=== PATIENT | female | born 2005 | race Caucasian/White ===

== ENCOUNTER 2024-06-09 21:48 | Emergency (ER) | payer OTHER ==
[2024-06-09 22:42] LABS: Influenza A Detected (Not Detectd); Influenza B Not Detected (Not Detectd); RSV Not Detected (Not Detectd)
--- NOTE | 2024-06-09 23:00 | ED ---
URI HPI - General Chief Complaint: Upper Respiratory Infection Stated Complaint: Fever/Pain on R Side Neck Time Seen by Provider: 06/09/24 22:04 Source: patient, RN notes reviewed Mode of arrival: ambulatory Limitations: no limitations - History of Present Illness Initial Comments: This is a 19-year-old female presenting for sick symptoms x 4 days. Patient endorses fever (100 F), chills, body aches, fatigue, cough and congestion. Endorses sick contact with partner and coworkers. Denies [id number] medication use. Denies chest pain, fever, abdominal pain, N/V/D. MD Complaint: fever, cough, nasal congestion Onset/Timin -: days(s) - Related Data Home Medications Medication Instructions Recorded Confirmed Melatonin 1 mg PO HS 02/03/15 02/03/15 Allergies Allergy/AdvReac Type Severity Reaction Status Date / Time No Known Allergies Allergy Verified 06/09/24 21:52 Review of Systems ROS Statement: Those systems with pertinent positive or pertinent negative responses have been documented in the HPI. ROS Other: All systems not noted in ROS Statement are negative. Past Medical History Past Medical History: No Reported History History of Any Multi-Drug Resistant Organisms: None Reported Past Surgical History: No Surgical Hx Reported Past Psychological History: No Psychological Hx Reported Smoking Status: Current every day smoker Past Alcohol Use History: Occasional Past Drug Use History: Marijuana General Exam Limitations: no limitations General appearance: alert, in no apparent distress Head exam: Present: atraumatic, normocephalic, normal inspection Eye exam: Present: normal appearance, PERRL, EOMI. Absent: scleral icterus, conjunctival injection, periorbital swelling ENT exam: Present: normal exam, normal oropharynx, mucous membranes moist, TM's normal bilaterally Neck exam: Present: normal inspection. Absent: tenderness, meningismus, lymphadenopathy Respiratory exam: Present: normal lung sounds bilaterally. Absent: respiratory distress, wheezes, rales, rhonchi, stridor, accessory muscle use, decreased breath sounds, prolonged expiratory Cardiovascular Exam: Present: regular rate, normal rhythm, normal heart sounds. Absent: systolic murmur, diastolic murmur, rubs, gallop, clicks GI/Abdominal exam: Present: soft, tenderness (Positive LLQ tenderness without guarding), normal bowel sounds. Absent: distended, guarding, rebound, rigid Extremities exam: Present: normal inspection, full ROM, normal capillary refill. Absent: tenderness, pedal edema, joint swelling, calf tenderness Back exam: Present: normal inspection Neurological exam: Present: alert, oriented X3, CN II-XII intact Psychiatric exam: Present: normal affect, normal mood Skin exam: Present: warm, dry, intact, normal color. Absent: rash Course Vital Signs 06/09/24 06/09/24 21:49 23:49 Temperature 97.5 F L 97.8 F Pulse Rate 102 H 97 Respiratory 18 20 Rate Blood Pressure 118/73 111/74 O2 Sat by Pulse 99 98 Oximetry Medical Decision Making - Medical Decision Making Was pt. sent in by a medical professional or institution (, PA, EYELET MAKER, urgent ca re, hospital, or skilled nursing...) When possible be specific @ -[No] Did you speak to anyone other than the patient for history (EMS, parent, family, police, friend...)? What history was obtained from this source @ -[No] Did you review nursing and triage notes (agree or disagree)? Why? @ -[I reviewed and agree with nursing and triage notes] Were old charts reviewed (outside hosp., previous admission, EMS record, old EKG, old radiological studies, urgent care reports/EKG's, skilled nursing records)? Report findings @ -[No old charts were reviewed] Differential Diagnosis (chest pain, altered mental status, abdominal pain women, abdominal pain men, vaginal bleeding, weakness, fever, dyspnea, syncope, headache, dizziness, GI bleed, back pain, seizure, CVA, palpatations, mental health, musculoskeletal)? @ -Differential Fever: Pneumonia, viral URI, endocarditis, myocarditis, pericarditis, otitis, sinusitis, peritonsillar Abscess, retropharyngeal Abscess, epiglottitis, peritonitis, appendicitis, Felisha cystitis, diverticulitis, hepatitis, colitis, UTI, PID, TOA, pyelonephritis, prostatitis, epididymitis, meningitis, encephalitis, pulmonary embolism, CVA, thyroid storm, pancreatitis, adrenal crisis, cavernous sinus thrombosis, this is not meant to be an all-inclusive list. EKG interpreted by me (3pts min.). @ -Not done X-rays interpreted by me (1pt min.). @ -[None done] CT interpreted by me (1pt min.). @ -[None done] U/S interpreted by me (1pt. min.). @ -[None done] What testing was considered but not performed or refused? (CT, X-rays, U/S, labs)? Why? @ -CXR considered but lung sounds were CTA in all adams and this was not performed. What meds were considered but not given or refused? Why? @ -[None] Did you discuss the management of the patient with other professionals (prof allen i.e. , PA, EYELET MAKER, lab, RT, psych nurse, director of social work, tool and die engineer, teacher, traffic officer, comp field case manager)? Give summary @ -[No] Was smoking cessation discussed for >3mins.? @ -[No] Was critical care preformed (if so, how long)? @ -[No] Were there social determinants of health that impacted care today? How? (Homelessness, low income, unemployed, alcoholism, drug addiction, transportation, low edu. Level, literacy, decrease access to med. care, usp, rehab)? @ -[No] Was there de-escalation of care discussed even if they declined (Discuss DNR or withdrawal of care, Hospice)? DNR status @ -[No] What co-morbidities impacted this encounter? (DM, HTN, Smoking, COPD, CAD, Cancer, CVA, ARF, Chemo, Hep., AIDS, mental health diagnosis, sleep apnea, morbid obesity)? @ -[None] Was patient admitted / discharged? Hospital course, mention meds given and route, prescriptions, significant lab abnormalities, going to OR and other pertinent info. @ -Cepheid test positive for influenza A. Patient is outside of 48-hour window for Tamiflu treatment. Advised alternate Tylenol/Motrin every 4 hours for fever/pain. Honey, warm fluids and humidifier for cough. Increase rest and oral rehydration. Follow-up with PCP for any ongoing or worsening symptoms. Discussed patient with Dr. Anderson. Undiagnosed new problem with uncertain prognosis? @ -[No] Drug Therapy requiring intensive monitoring for toxicity (Heparin, Nitro, Insulin, Cardizem)? @ -[No] Were any procedures done? @ -[No] Diagnosis/symptom? @ -Influenza A Acute, or Chronic, or Acute on Chronic? @ -Acute Uncomplicated (without systemic symptoms) or Complicated (systemic symptoms)? @ -Complicated Side effects of treatment? @ -[No] Exacerbation, Progression, or Severe Exacerbation? @ -[No] Poses a threat to life or bodily function? How? (Chest pain, [place], [place], pneumonia, PE, COPD, DKA, ARF, appy, cholecystitis, CVA, Diverticulitis, Homicidal, Suicidal, threat to staff... and all critical care pts) @ -[No] - Lab Data Lab Results 06/09/24 Range/Units 21:54 Influenza Type A (PCR) Detected A (Not Detectd) Influenza Type B (PCR) Not Detected (Not Detectd) RSV (PCR) Not Detected (Not Detectd) SARS-CoV-2 (PCR) Not Detected (Not Detectd) Disposition Clinical Impression: Influenza Disposition: HOME SELF-CARE Condition: Good Instructions (If sedation given, give patient instructions): Influenza (ED) Additional Instructions: Alternate Tylenol/Motrin every 4 hours for fever and pain. Honey, warm fluids, humidifier for cough. Increase rest and oral rehydration. Recommend follow-up with PCP in the next 24-48 hours. Is patient prescribed a controlled substance at d/c from ED?: No Referrals: Markie Tello MD [Primary Care Provider] - 1-2 days Time of Disposition: 23:00
[2024-06-09 23:51] VITALS: BP 111/74; PULSE 97; RESP 20; TEMP 97.8
== END 2024-06-09 23:28 | disposition home or self-care (01) ==
LOC: EC 21:48
DX: J10.1 Influenza due to other identified influenza virus with other respiratory manifestations (principal); F17.200 Nicotine dependence, unspecified, uncomplicated
CPT/HCPCS: 87636; 99283

== ENCOUNTER 2024-09-02 17:48 | Emergency (ER) | payer OTHER ==
--- NOTE | 2024-09-02 19:21 | ED ---
General Adult HPI - General Chief complaint: Abdominal Pain Stated complaint: Vomiting Time Seen by Provider: 09/02/24 18:11 Source: patient, RN notes reviewed Mode of arrival: ambulatory Limitations: no limitations - History of Present Illness Initial comments: 19-year-old female presents to the emergency department for evaluation of nausea and vomiting. Patient notes that this started 2 to 3 days ago. She reports feeling nauseated and having multiple episodes of vomiting. Patient endorses lower abdominal cramping. She does note a decrease in her bowel movements. Denies any fever, chills. Denies any prior abdominal surgeries. Denies any ur inary symptoms. - Related Data Home Medications Medication Instructions Recorded Confirmed Melatonin 1 mg PO HS 02/03/15 02/03/15 Allergies Allergy/AdvReac Type Severity Reaction Status Date / Time No Known Allergies Allergy Verified 09/02/24 17:59 Review of Systems ROS Statement: Those systems with pertinent positive or pertinent negative responses have been documented in the HPI. ROS Other: All systems not noted in ROS Statement are negative. Past Medical History Past Medical History: No Reported History History of Any Multi-Drug Resistant Organisms: None Reported Past Surgical History: No Surgical Hx Reported Past Psychological History: No Psychological Hx Reported Smoking Status: Current every day smoker Past Alcohol Use History: Occasional Past Drug Use History: Marijuana General Exam Limitations: no limitations General appearance: alert, in no apparent distress Head exam: Present: atraumatic, normocephalic, normal inspection Eye exam: Present: normal appearance, PERRL, EOMI. Absent: scleral icterus, conjunctival injection, periorbital swelling ENT exam: Present: normal exam, mucous membranes moist Respiratory exam: Present: normal lung sounds bilaterally. Absent: respiratory distress, wheezes, rales, rhonchi, stridor Cardiovascular Exam: Present: regular rate, normal rhythm, normal heart sounds. Absent: systolic murmur, diastolic murmur, rubs, gallop, clicks GI/Abdominal exam: Present: soft, tenderness, normal bowel sounds. Absent: distended, guarding, rebound, rigid Extremities exam: Present: normal inspection, full ROM, normal capillary refill. Absent: tenderness, pedal edema, joint swelling, calf tenderness Back exam: Present: normal inspection Neurological exam: Present: alert, oriented X3 Psychiatric exam: Present: normal affect, normal mood Skin exam: Present: warm, dry, intact, normal color. Absent: rash Course Vital Signs 09/02/24 09/02/24 09/02/24 17:56 19:34 21:02 Temperature 98.0 F Pulse Rate 81 65 65 Respiratory 16 18 16 Rate Blood Pressure 115/76 92/58 99/60 O2 Sat by Pulse 76 L 97 100 Oximetry 09/02/24 21:52 Temperature 98.6 F Pulse Rate 86 Respiratory 18 Rate Blood Pressure 98/65 O2 Sat by Pulse 99 Oximetry Medical Decision Making - Medical Decision Making Was pt. sent in by a medical professional or institution (, PA, TRIAGE NURSE, urgent care, hospital, or shelter...) When possible be specific @ -No Did you speak to anyone other than the patient for history (EMS, parent, family, police, friend...)? What history was obtained from this source @ -No Did you review nursing and triage notes (agree or disagree)? Why? @ -I reviewed and agree with nursing and triage notes Were old charts reviewed (outside hosp., previous admission, EMS record, old EKG, old radiological studies, urgent care reports/EKG's, shelter records)? Report findings @ -No old charts were reviewed Differential Diagnosis (chest pain, altered mental status, abdominal pain women, abdominal pain men, vaginal bleeding, weakness, fever, dyspnea, syncope, headache, dizziness, GI bleed, back pain, seizure, CVA, palpatations, mental health, musculoskeletal)? @ -Differential Abdominal Pain Women: Appendicitis, Cholecystitis, diverticulosis, ischemic bowel, pancreatitis, hepatitis, UTI, gastroenteritis, AAA, incarcerated hernia, bowel obstruction, constipation, inflammatory bowel, hepatitis, peptic ulcer disease, splenic inf arction, perforated viscus, vulvitis, ovarian torsion, PID, kidney stone, placenta abruption, this is not meant to be an all-inclusive list EKG interpreted by me (3pts min.). @ -None X-rays interpreted by me (1pt min.). @ -None done CT interpreted by me (1pt min.). @ -None done U/S interpreted by me (1pt. min.). @ -None done What testing was considered but not performed or refused? (CT, X-rays, U/S, labs)? Why? @ -None What meds were considered but not given or refused? Why? @ -None Did you discuss the management of the patient with other professionals (professionals i.e. , PA, TRIAGE NURSE, lab, RT, psych nurse, social media senior associate, sports lawyer, teacher, investigation officer, case sealer)? Give summary @ -No Was smoking cessation discussed for >3mins.? @ -No Was critical care preformed (if so, how long)? @ -No Were there social determinants of health that impacted care today? How? (Homelessness, low income, unemployed, alcoholism, drug addiction, transportation, low edu. Level, literacy, decrease access to med. care, fdc, rehab)? @ -No Was there de-escalation of care discussed even if they declined (Discuss DNR or withdrawal of care, Hospice)? DNR status @ -No What co-morbidities impacted this encounter? (DM, HTN, Smoking, COPD, CAD, Cancer, CVA, ARF, Chemo, Hep., AIDS, mental health diagnosis, sleep apnea, morbid obesity)? @ -None Was patient admitted / discharged? Hospital course, mention meds given and route, prescriptions, significant lab abnormalities, going to OR and other pert inent info. @ -Discharge. Patient presented the emergency department for nausea and vomiting. Laboratory studies obtained revealing no significant leukocytosis, hemoglobin 14.5; CMP is nonactionable UA shows no evidence of infectious process, 2+ ketones. Negative urine hCG. KUB x-ray shows nonspecific bowel gas pattern. Patient was provided IV fluids in the emergency department along with Zofran. Patient does report improvement in her symptoms. Patient will be discharged home with Zofran starter pack. Advised to increase hydration. Patient will be discharged home. She is understanding agreeable with plan. Patient stable at time of discharge. Case discussed with Dr. Pereira Undiagnosed new problem with uncertain prognosis? @ -No Drug Therapy requiring intensive monitoring for toxicity (Heparin, Nitro, Insulin, Cardizem)? @ -No Were any procedures done? @ -No Diagnosis/symptom? @ -Gastroenteritis Acute, or Chronic, or Acute on Chronic? @ -Acute Uncomplicated (without systemic symptoms) or Complicated (systemic symptoms)? @ -Uncomplicated Side effects of treatment? @ -No Exacerbation, Progression, or Severe Exacerbation? @ -No Poses a threat to life or bodily function? How? (Chest pain, [place], [place], pneumonia, PE, COPD, DKA, ARF, appy, cholecystitis, CVA, Diverticulitis, Homicidal, Suicidal, threat to staff... and all critical care pts) @ -No - Lab Data Result diagrams: 09/02/24 19:20 09/02/24 19:20 Lab Results 09/02/24 09/02/24 09/02/24 Range/Units 19:20 19:20 19:34 WBC 6.25 (4.50-10.00) 10*3/uL RBC 4.78 (4.10-5.20) 10*6/uL Hgb 14.5 (12.0-15.0) g/dL Hct 42.7 (37.2-46.3) % MCV 89.3 (80.0-97.0) fL MCH 30.3 (27.0-32.0) pg MCHC 34.0 (32.0-37.0) g/dL Plt Count 222 (140-440) 10*3/uL MPV 11.6 (9.5-12.2) fL Immature Gran % (Auto) 0.2 % Neutrophils % Not Reportable Neutrophils % (Manual) 66 % Lymphocytes % Not Reportable Lymphocytes % (Manual) 27 % Monocytes % Not Reportable Monocytes % (Manual) 5 % Eosinophils % Not Reportable Eosinophils % (Manual) 2 % Basophils % Not Reportable Immature Gran # 0.01 (0.00-0.04) 10*3/uL Neutrophils # Not Reportable Neutrophils # (Manual) 4.13 (1.3-7.7) k/uL Lymphocytes # Not Reportable Lymphocytes # (Manual) 1.69 (1.0-4.8) k/uL Monocytes # Not Reportable Monocytes # (Manual) 0.31 (0-1.0) k/uL Eosinophils # Not Reportable Eosinophils # (Manual) 0.13 (0-0.7) k/uL Basophils # Not Reportable Nucleated RBCs 0 (0-0) /100 WBC Manual Slide Review Performed Sodium 136 L (137-145) mmol/L Potassium 4.5 (3.5-5.1) mmol/L Chloride 102 (98-107) mmol/L Carbon Dioxide 21 L (22-30) mmol/L Anion Gap 13 mmol/L BUN 8 (7-17) mg/dL Creatinine 0.62 (0.52-1.04) mg/dL Est GFR (CKD-EPI)AfAm >90 (>60 ml/min/1.73 sqM) Est GFR (CKD-EPI)NonAf >90 (>60 ml/min/1.73 sqM) Glucose 82 (74-99) mg/dL Calcium 10.3 H (8.4-10.2) mg/dL Total Bilirubin 0.7 (0.2-1.3) mg/dL AST 23 (14-36) U/L ALT 16 (4-34) U/L Alkaline Phosphatase 46 (38-126) U/L Total Protein 7.2 (6.3-8.2) g/dL Albumin 4.6 (3.5-5.0) g/dL Amylase 54 (30-110) U/L Lipase 58 (23-300) U/L Urine Color Yellow Urine Appearance Clear (Clear) Urine pH 5.0 (5.0-8.0) Ur Specific [place] 1.027 (1.001-1.035) Urine Protein Negative (Negative) Urine Glucose (UA) Negative (Negative) Urine Ketones 2+ H (Negative) Urine Blood Negative (Negative) Urine Nitrite Negative (Negative) Urine Bilirubin Negative (Negative) Urine Urobilinogen <2.0 (<2.0) mg/dL Ur Leukocyte Esterase Negative (Negative) Urine HCG, Qual (Not Detectd) 09/02/24 Range/Units 19:34 WBC (4.50-10.00) 10*3/uL RBC (4.10-5.20) 10*6/uL Hgb (12.0-15.0) g/dL Hct (37.2-46.3) % MCV (80.0-97.0) fL MCH (27.0-32.0) pg MCHC (32.0-37.0) g/dL Plt Count (140-440) 10*3/uL MPV (9.5-12.2) fL Immature Gran % (Auto) % Neutrophils % Neutrophils % (Manual) % Lymphocytes % Lymphocytes % (Manual) % Monocytes % Monocytes % (Manual) % Eosinophils % Eosinophils % (Manual) % Basophils % Immature Gran # (0.00-0.04) 10*3/uL Neutrophils # Neutrophils # (Manual) (1.3-7.7) k/uL Lymphocytes # Lymphocytes # (Manual) (1.0-4.8) k/uL Monocytes # Monocytes # (Manual) (0-1.0) k/uL Eosinophils # Eosinophils # (Manual) (0-0.7) k/uL Basophils # Nucleated RBCs (0-0) /100 WBC Manual Slide Review Sodium (137-145) mmol/L Potassium (3.5-5.1) mmol/L Chloride (98-107) mmol/L Carbon Dioxide (22-30) mmol/L Anion Gap mmol/L BUN (7-17) mg/dL Creatinine (0.52-1.04) mg/dL Est GFR (CKD-EPI)AfAm (>60 ml/min/1.73 sqM) Est GFR (CKD-EPI)NonAf (>60 ml/min/1.73 sqM) Glucose (74-99) mg/dL Calcium (8.4-10.2) mg/dL Total Bilirubin (0.2-1.3) mg/dL AST (14-36) U/L ALT (4-34) U/L Alkaline Phosphatase (38-126) U/L Total Protein (6.3-8.2) g/dL Albumin (3.5-5.0) g/dL Amylase (30-110) U/L Lipase (23-300) U/L Urine Color Urine Appearance (Clear) Urine pH (5.0-8.0) Ur Specific [place] (1.001-1.035) Urine Protein (Negative) Urine Glucose (UA) (Negative) Urine Ketones (Negative) Urine Blood (Negative) Urine Nitrite (Negative) Urine Bilirubin (Negative) Urine Urobilinogen (<2.0) mg/dL Ur Leukocyte Esterase (Negative) Urine HCG, Qual Not Detected (Not Detectd) Disposition Clinical Impression: Nausea and vomiting Disposition: HOME SELF-CARE Condition: Stable Instructions (If sedation given, give patient instructions): Acute Nausea and Vomiting (ED) Additional Instructions: Please follow-up with your doctor. Return to the emergency department for any new or worsening symptoms. Is patient prescribed a controlled substance at d/c from ED?: No Referrals: Markie Tello MD [Primary Care Provider] - 1-2 days
[2024-09-02] MEDS: LACTATED RINGERS 1,000 ML IV ONE (19:35)
[2024-09-02] MEDS: ONDANSETRON 4 MG/2 ML VIAL IVP STA (19:35)
[2024-09-02 19:39] LABS: HCT 42.7 % (37.2-46.3); HGB 14.5 g/dL (12.0-15.0); MCH 30.3 pg (27.0-32.0); MCHC 34.0 g/dL (32.0-37.0); MCV 89.3 fL (80.0-97.0); Platelet Count 222 10*3/uL (140-440); RBC 4.78 10*6/uL (4.10-5.20); RDW 12.6 % (11.5-14.5); WBC 6.25 10*3/uL (4.50-10.00)
[2024-09-02 19:43] LABS: Bilirubin,Urine Negative (Negative); Blood,Urine Negative (Negative); Color,Urine Yellow; Glucose,Urine (UA) Negative (Negative); Ketones,Urine 2+ (Negative); Leukocyte Esterase,Urine Negative (Negative); Nitrite,Urine Negative (Negative); PH, Urine 5.0 (5.0-8.0); Protein,Urine Negative (Negative); Specific Gravity,Urine 1.027 (1.001-1.035); Urobilinogen,Urine <2.0 mg/dL (<2.0)
[2024-09-02 19:45] LABS: ALT 16 U/L (4-34); AST 23 U/L (14-36); African American GFR (CKD) >90 (>60 ml/min/1.73 sqM); Albumin 4.6 g/dL (3.5-5.0); Alkaline Phosphatase 46 U/L (38-126); Amylase 54 U/L (30-110); Anion Gap 13 mmol/L; Blood Urea Nitrogen 8 mg/dL (7-17); Calcium 10.3 mg/dL (8.4-10.2); Carbon Dioxide 21 mmol/L (22-30); Chloride 102 mmol/L (98-107); Glucose 82 mg/dL (74-99); Lipase 58 U/L (23-300); Non-African American GFR(CKD) >90 (>60 ml/min/1.73 sqM); Potassium 4.5 mmol/L (3.5-5.1); Sodium 136 mmol/L (137-145); Total Protein 7.2 g/dL (6.3-8.2)
--- NOTE | 2024-09-02 20:15 | XR ---
EXAMINATION TYPE: XR KUB DATE OF EXAM: 09/02/2024 8:10 PM COMPARISON: None CLINICAL INDICATION: Female, 19 years old with history of abdominal pain; [facility] TECHNIQUE: One radiographic view of the abdomen was obtained. FINDINGS: The bowel gas pattern is nonspecific without dilated loops of small or large bowel. . Fecal material and gas are demonstrated throughout the colon and rectum. There is no evidence for organome ora or pneumoperitoneum. No acute osseous process. No abnormal calcifications are present. IMPRESSION: Nonspecific bowel gas pattern without radiographic evidence for acute process. [facility], , 09/02/2024 8:13 PM
[2024-09-02 20:31] LABS: Eosinophils # (M) 0.13 k/uL (0-0.7); Lymphocytes # (M) 1.69 k/uL (1.0-4.8); Monocytes # (M) 0.31 k/uL (0-1.0); Neutrophils # (M) 4.13 k/uL (1.3-7.7); Neutrophils % (M) 66 %; Total Cells Counted 100
[2024-09-02] MEDS: KETOROLAC 15 MG/ML 1 ML VIAL IVP STA (21:25)
[2024-09-02] MEDS: ONDANSETRON 4 MG ODT STARTER PACK TAB BTL PO STA (21:49)
[2024-09-02 21:53] VITALS: BP 98/65; PULSE 86; RESP 18; TEMP 98.6
== END 2024-09-02 21:53 | disposition home or self-care (01) ==
LOC: EC 17:48
DX: R11.2 Nausea with vomiting, unspecified (principal); F17.200 Nicotine dependence, unspecified, uncomplicated
CPT/HCPCS: 36415; 80053; 82150; 83690; 85025; 81003; 81025; 74018; 99284; 96374; 96375; 96361; J2405; J1885; S0119